=== PATIENT | male | born 1995 | race African-American/Black ===

== ENCOUNTER 2017-08-13 00:54 | Emergency (ER) | payer SELFPAY ==
[~2017-08-13] VITALS: Ht 172.7 cm; Wt 72.6 kg
--- NOTE | 2017-08-13 02:38 | NUR ---
Patient discharged to home in stable conditon. Written and verbal after care instructions given. Patient verbalizes understanding of instructions.
== END 2017-08-13 02:38 | disposition home or self-care (01) ==
LOC: ER 00:58
DX: S43.005A Unspecified dislocation of left shoulder joint, initial encounter (principal); S16.1XXA Strain of muscle, fascia and tendon at neck level, initial encounter; S20.219A Contusion of unspecified front wall of thorax, initial encounter; Z91.018 Allergy to other foods; G43.909 Migraine, unspecified, not intractable, without status migrainosus; V49.49XA Driver injured in collision with other motor vehicles in traffic accident, initial encounter; Y93.89 Activity, other specified; Y92.410 Unspecified street and highway as the place of occurrence of the external cause; Y99.8 Other external cause status
CPT/HCPCS: A4663

== ENCOUNTER 2017-09-27 22:04 | Emergency (ER) | payer BC ==
[~2017-09-27] VITALS: Ht 180.3 cm; Wt 86.2 kg
--- NOTE | 2017-09-27 23:00 | NUR ---
TO ROOM 4B FOE ER EVAL
--- NOTE | 2017-09-27 23:10 | NUR ---
ERMD AT BEDSIDE TALKING WITH PT AND DOING EVALUATION
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
[2017-09-28 00:35] VITALS: BP 119/64
== END 2017-09-28 00:18 | disposition home or self-care (01) ==
LOC: ER 22:04
DX: S20.219A Contusion of unspecified front wall of thorax, initial encounter (principal); Z91.018 Allergy to other foods; V49.9XXA Car occupant (driver) (passenger) injured in unspecified traffic accident, initial encounter; Y93.89 Activity, other specified; Y92.410 Unspecified street and highway as the place of occurrence of the external cause; Y99.8 Other external cause status
CPT/HCPCS: 73030; A4663